=== PATIENT | female | born 1945 | race Caucasian/White ===

== ENCOUNTER 2017-02-25 07:20 | Day surgery (SDC) | payer MEDICARE, OTHER ==
--- NOTE | ~2017-02-25 | EGD ---
EGD REPORT [facility] [address] [address] NAME: MEMO ELIZABETH : [birth year] STATUS : REG [facility] [place] PAT#: [id number] AGE: 71 ADM/REG DATE : 02/25/17 MR#: [id number] REPORT SERV DATE: 02/25/17 DICTATED BY: ALFONZO WILCOX DATE: 02/25/17 REPORT STATUS : Draft TRANSCRIBED BY: [facility] DATE: 02/25/17 [facility] Patient Name: Memo Elizabeth Date of : 1945 Attending MD: ALFONZO WILCOX MD Procedure Date No Time: 02/25/2017 Procedure: Colonoscopy Indications: Screening for colorectal malignant neoplasm, Last colonoscopy: 2005 Referring MD: COLLIN MURPHY Medicines: See the Anesthesia note for documentation of the administered medications Complications: No immediate complications. Procedure: Pre-Anesthesia Assessment: - ASA Grade Assessment: III - A patient with severe systemic disease. After I obtained informed consent, the scope was passed under direct vision. Throughout the procedure, the patient's blood pressure, pulse, and oxygen saturations were monitored continuously. The CF [id number] was introduced through the anus and advanced to the cecum, identified by appendiceal orifice and ileocecal valve. The colonoscopy was performed without difficulty. The patient tolerated the procedure well. The quality of the bowel preparation was adequate. Findings: The perianal and digital rectal examinations were normal. Diverticula were found in the sigmoid colon. Internal hemorrhoids were found during retroflexion and were small. A sessile polyp was found in the proximal ascending colon. The polyp was 10 mm in size. The polyp was removed with a hot snare. Resection and retrieval were complete. A sessile polyp was found in the ascending colon. The polyp was 10 mm in size. The polyp was removed with a hot snare. Resection and retrieval were complete. A sessile polyp was found in the transverse colon. The polyp was 10 mm in size. The polyp was removed with a hot snare. Resection and retrieval were complete. Impression: - Diverticulosis in the sigmoid colon. - Internal hemorrhoids. - One 10 mm polyp in the proximal ascending colon. Resected and retrieved. - One 10 mm polyp in the ascending colon. Resected and EGD REPORT [address] [address] NAME: MEMO ELIZABETH : [birth year] STATUS : REG [facility] [place] PAT#: [id number] AGE: 71 ADM/REG DATE : 02/25/17 MR#: [id number] REPORT SERV DATE: 02/25/17 DICTATED BY: ALFONZO WILCOX DATE: 02/25/17 REPORT STATUS : Draft TRANSCRIBED BY: [employer] DATE: 02/25/17 retrieved. - One 10 mm polyp in the transverse colon. Resected and retrieved. Recommendation: - Patient has a contact number available for emergencies. The signs and symptoms of potential delayed complications were discussed with the patient. Return to normal activities tomorrow. Written discharge instructions were provided to the patient. - Regular diet. - Continue present medications. - Repeat colonoscopy for surveillance based on pathology results. - FOR YOUR BIOPSY RESULTS: Please go to [email or web address] and register to receive your results via the portal. Your biopsy results will be posted there in about 7 to 10 days. IF you do not see result in 10 days, call office. Procedure Code(s): --- Professional --- 96526, Colonoscopy, flexible, proximal to splenic flexure; with removal of tumor(s), polyp(s), or other lesion(s) by snare technique Diagnosis Code(s): --- Professional --- K64.8, Other hemorrhoids K57.30, Diverticulosis of large intestine without perforation or abscess without bleeding D12.3, Benign neoplasm of transverse colon D12.2, Benign neoplasm of ascending colon Z12.11, Encounter for screening for malignant neoplasm of colon CPT copyright 2013 [employer]. All rights reserved. The codes documented in this report are preliminary and upon senior solutions consultant review may be revised to meet current compliance requirements. Alfonzo Wilcox MD ALFONZO WILCOX MD 02/25/2017 9:35 AM This report has been signed electronically. Number of Addenda: 0 Note Initiated On: 02/25/2017 8:11 AM EGD REPORT [facility] [address] [facility] [address] NAME: MEMO ELIZABETH : [birth year] STATUS : REG [facility] [place] PAT#: [id number] AGE: 71 ADM/REG DATE : 02/25/17 MR#: [id number] REPORT SERV DATE: 02/25/17 DICTATED BY: ALFONZO WILCOX DATE: 02/25/17 REPORT STATUS : Draft TRANSCRIBED BY: [employer] DATE: 02/25/17 Scope Withdrawal Time 0 hours 18 minutes 28 seconds [address] [place] [address]
[~2017-02-25 07:20] MED LIST: ADVIL PO; ASAB PO; ATEN25 PO; ATEN50 PO; CELEXA10 PO; DYAZIDE1 CAP PO; HEMOCYTET PO; LEXAPRO10 PO; MAX25 PO; MCZ25 PO; MOBIC15 MG PO
== END 2017-02-25 23:59 | disposition home health service (06) ==
LOC: DMU 07:20
PROVIDERS: Internal Medicine Gastroenterology
PROC: 0DBK8ZZ Excision of Ascending Colon, Via Natural or Artificial Opening Endoscopic (ICD-10-PCS; 2017-02-25)
PROC: 0DBL8ZZ Excision of Transverse Colon, Via Natural or Artificial Opening Endoscopic (ICD-10-PCS; principal; 2017-02-25 09:00)
DX: Z12.11 Encounter for screening for malignant neoplasm of colon (principal); D12.2 Benign neoplasm of ascending colon; I10 Essential (primary) hypertension; G47.33 Obstructive sleep apnea (adult) (pediatric); K57.30 Diverticulosis of large intestine without perforation or abscess without bleeding; K64.8 Other hemorrhoids; K63.5 Polyp of colon; Z99.81 Dependence on supplemental oxygen
CPT/HCPCS: 88305